=== PATIENT | male | born 1940 | race Caucasian/White ===

== ENCOUNTER 2021-01-08 04:58 | Day surgery (SDC) | payer OTHER, BC ==
[2021-01-06 14:47] VITALS: BMI 29.1
[2021-01-08 09:21] VITALS: TEMP 97.5
[2021-01-08 10:30] VITALS: BP 113/66; PULSE 77
== END 2021-01-08 10:25 | disposition home or self-care (01) ==
LOC: JASU-ENDO 04:58
PROVIDERS: ATTEND Internal Medicine Gastroenterology
PROC: 0DJD8ZZ Inspection of Lower Intestinal Tract, Via Natural or Artificial Opening Endoscopic (ICD-10-PCS; principal; 2021-01-08 08:56)
DX: Z12.11 Encounter for screening for malignant neoplasm of colon (principal); K57.30 Diverticulosis of large intestine without perforation or abscess without bleeding; K64.8 Other hemorrhoids; Z86.010 Personal history of colon polyps

== ENCOUNTER 2022-05-14 09:37 | Inpatient (IN) | payer OTHER, BC ==
[2022-05-14] MEDS ORDERED: ACETAMINOPHEN 650 MG SUPP.RECT ONE (09:44)
[2022-05-14] MEDS ORDERED: SODIUM CHLORIDE 1,000 ML IV STA (09:47)
[2022-05-14 10:25] VITALS: BMI 26.2
[2022-05-14 10:46] LABS: EPI CELLS 4 /uL (0-25.1); HYALINE CASTS 0 /uL (0-3.1); PH,URINE 7.5 (5.0-8.0); URINE APPEARANCE CLEAR; URINE BACTERIA 6 /uL (0-1359); URINE BILIRUBIN NEGATIVE (NEGATIVE); URINE COLOR YELLOW; URINE GLUCOSE (UA) NEGATIVE (NEGATIVE); URINE KETONE NEGATIVE (NEGATIVE); URINE LEUK ESTERASE NEGATIVE (NEGATIVE); URINE NITRITE NEGATIVE (NEGATIVE); URINE PROTEIN NEGATIVE (NEGATIVE); URINE RBC 62 /uL (0-23.9); URINE UROBILINOGEN 0.2 mg/dL (0.2-1.0); URINE WBC 2 /uL (0-25.8)
[2022-05-14 10:47] LABS: BASO % 0.4 % (0-2.0); EOS % 0.6 % (0-4.5); HEMATOCRIT 47.1 % (35.4-49); HEMOGLOBIN 15.7 GM/dL (11.7-16.9); LYMPH % 15.4 % (8-40); MCH 30.9 pg (25.7-33.7); MCHC 33.3 g/dl (32.0-35.9); MEAN CELL VOLUME 92.7 fl (80-96); MEAN PLT VOLUME 9.2 fl (7.5-11.1); MONO % 15.3 % (3.8-10.2); NEUT % 68.3 % (42.8-82.8); PLATELET COUNT 166 10^3/uL (134-434); RBC 5.08 M/mm3 (4.00-5.60); RDW 13.8 % (11.9-15.9)
[2022-05-14] MEDS ORDERED: LACTATED RINGERS SOLUTION 1000 ML INFUS.BAG IV ONE ×2 (10:47→12:56)
[2022-05-14 10:51] LABS: INR 1.18 (0.83-1.09); PROTHROMBIN TIME (PATIENT) 13.6 SEC (9.7-13.0)
[2022-05-14 10:54] LABS: ACTIVATED PTT 30.5 SECONDS (25.2-36.5)
[2022-05-14 10:58] LABS: CHLORIDE 103 mmol/L (98-107); SODIUM 133 mmol/L (136-145)
[2022-05-14 11:00] LABS: CALCIUM 8.9 mg/dL (8.5-10.1)
[2022-05-14 11:01] LABS: ALBUMIN 3.9 g/dl (3.4-5.0); BLOOD UREA NITROGEN 19.8 mg/dL (7-18); CO2 23 mmol/L (21-32); GLUCOSE,RANDOM 121 mg/dL (74-106); MAGNESIUM 2.4 mg/dL (1.8-2.4)
[2022-05-14 11:05] LABS: BILIRUBIN,TOTAL 0.6 mg/dL (0.2-1); TOT PROT 8.2 g/dl (6.4-8.2)
[2022-05-14 11:07] LABS: ALK PHOS 86 U/L (45-117)
[2022-05-14 11:40] LABS: LACTIC ACID 2.3 mmol/L (0.4-2.0)
[2022-05-14 11:57] LABS: ANION GAP 8 MMOL/L (8-16); SGOT/AST 89 U/L (15-37); SGPT/ALT 35 U/L (13-61)
[2022-05-14] MEDS ORDERED: DEXTROSE 5%-LACTATED RINGERS 1,000 ML IV SCH (13:30)
[2022-05-14] MEDS ORDERED: ASPIRIN 325 MG TABLET PO ONE (13:32)
[2022-05-14] MEDS ORDERED: ASPIRIN 300 MG SUPP.RECT PR ONE (13:44)
[2022-05-14] MEDS ORDERED: REMDESIVIR 200 MG in SODIUM CHLORIDE 250 ML IVPB ONE (14:12)
[2022-05-14] MEDS ORDERED: ASPIRIN 300 MG SUPP.RECT RC ONE (14:13)
[2022-05-14] MEDS ORDERED: ONDANSETRON 4 MG/2 ML VIAL IVPUSH ONE (14:16)
[2022-05-14] MEDS ORDERED: ONDANSETRON 4 MG/2 ML VIAL ONE (14:38)
[2022-05-14] MEDS ORDERED: VANCOMYCIN 1 GM/200 ML PREMIX BAG (RESTRICTED TO ID ONLY) IVPB ONE (20:54)
[2022-05-14] MEDS: TIMOLOL 0.5% OPHTHALMIC SOL 5 ML BOTTLE OU SCH (21:58)
[2022-05-14] MEDS: DEXTROSE 5%-LACTATED RINGERS 1,000 ML IV SCH (21:58)
[2022-05-14] MEDS: HEPARIN NA (PORCINE) 5,000 UNITS/ML 1ML VIAL SQ SCH (21:58)
[2022-05-14] MEDS: prednisoLONE ACETATE 1% OPHTH SUSP 5 ML BOTTLE OU SCH (21:58)
[2022-05-15] MEDS ORDERED: ACETAMINOPHEN 1000 MG/100 ML BAG IVPB PRN (02:09)
[2022-05-15 08:26] LABS: HEMATOCRIT 39.1 % (35.4-49); HEMOGLOBIN 13.1 GM/dL (11.7-16.9); MCH 31.2 pg (25.7-33.7); MCHC 33.6 g/dl (32.0-35.9); MEAN CELL VOLUME 92.9 fl (80-96); PLATELET COUNT 128 10^3/uL (134-434); RBC 4.21 M/mm3 (4.00-5.60); RDW 13.7 % (11.9-15.9); WHITE BLOOD COUNT 7.2 K/mm3 (4.0-10.0)
[2022-05-15 08:44] LABS: CALCIUM 8.4 mg/dL (8.5-10.1)
[2022-05-15 08:47] LABS: CREATININE 0.8 mg/dL (0.55-1.3)
[2022-05-15 08:49] LABS: BILIRUBIN,TOTAL 0.4 mg/dL (0.2-1)
[2022-05-15 08:50] LABS: TOT PROT 5.8 g/dl (6.4-8.2)
[2022-05-15] MEDS: HEPARIN NA (PORCINE) 5,000 UNITS/ML 1ML VIAL SQ SCH ×2 (09:49→21:30)
[2022-05-15] MEDS: TIMOLOL 0.5% OPHTHALMIC SOL 5 ML BOTTLE OU SCH ×2 (09:49→21:30)
[2022-05-15] MEDS: ASPIRIN COATED 81 MG TABLET.EC PO SCH (09:49)
[2022-05-15] MEDS: prednisoLONE ACETATE 1% OPHTH SUSP 5 ML BOTTLE OU SCH (09:49)
[2022-05-15 10:52] LABS: ANISOCYTOSIS 0; HELMET CELLS 0; HOWELL-JOLLY BODIES 0; MACROCYTOSIS 0; OVALOCYTE 0; ROULEAU 0; SICKELED CELLS 0; TARGET CELLS 0; TEAR DROP CELLS 0; TOXIC GRANULATION 0
[2022-05-15] MEDS: DEXAMETHASONE 4 MG TABLET (FP) PO SCH (13:26)
[2022-05-15] MEDS: REMDESIVIR 100 MG in SODIUM CHLORIDE 250 ML IVPB SCH (13:34)
[2022-05-15] MEDS: DEXTROSE 5%-LACTATED RINGERS 1,000 ML IV SCH (21:30)
[2022-05-16] MEDS ORDERED: chlorproMAZINE HCL 25 MG TABLET PO PRN (09:06)
[2022-05-16] MEDS ORDERED: ONDANSETRON 4 MG/2 ML VIAL IVPUSH ONE (09:18)
[2022-05-16 09:58] LABS: BASO % 0.1 % (0-2.0); HEMATOCRIT 41.8 % (35.4-49); HEMOGLOBIN 13.8 GM/dL (11.7-16.9); LYMPH % 11.2 % (8-40); MCH 30.5 pg (25.7-33.7); MCHC 33.1 g/dl (32.0-35.9); MEAN CELL VOLUME 92.1 fl (80-96); MEAN PLT VOLUME 9.1 fl (7.5-11.1); NEUT % 78.7 % (42.8-82.8); PLATELET COUNT 152 10^3/uL (134-434); RBC 4.54 M/mm3 (4.00-5.60); RDW 13.7 % (11.9-15.9); WHITE BLOOD COUNT 12.7 K/mm3 (4.0-10.0)
[2022-05-16] MEDS: ASPIRIN COATED 81 MG TABLET.EC PO SCH (10:03)
[2022-05-16] MEDS: HEPARIN NA (PORCINE) 5,000 UNITS/ML 1ML VIAL SQ SCH ×2 (10:03→21:40)
[2022-05-16] MEDS: DEXAMETHASONE 4 MG TABLET (FP) PO SCH (10:03)
[2022-05-16] MEDS: TIMOLOL 0.5% OPHTHALMIC SOL 5 ML BOTTLE OU SCH ×2 (10:13→21:40)
[2022-05-16] MEDS: prednisoLONE ACETATE 1% OPHTH SUSP 5 ML BOTTLE OU SCH (10:13)
[2022-05-16] MEDS: REMDESIVIR 100 MG in SODIUM CHLORIDE 250 ML IVPB SCH (13:06)
[2022-05-16] MEDS: chlorproMAZINE HCL 25 MG TABLET PO PRN (15:35)
[2022-05-16] MEDS: DEXTROSE 5%-LACTATED RINGERS 1,000 ML IV SCH (23:10)
[2022-05-17] MEDS: chlorproMAZINE HCL 25 MG TABLET PO PRN ×3 (02:38→23:23)
[2022-05-17] MEDS: DEXAMETHASONE 4 MG TABLET (FP) PO SCH (09:03)
[2022-05-17] MEDS: ASPIRIN COATED 81 MG TABLET.EC PO SCH (09:03)
[2022-05-17] MEDS: HEPARIN NA (PORCINE) 5,000 UNITS/ML 1ML VIAL SQ SCH ×2 (09:03→22:39)
[2022-05-17] MEDS: TIMOLOL 0.5% OPHTHALMIC SOL 5 ML BOTTLE OU SCH ×2 (09:04→22:39)
[2022-05-17] MEDS: prednisoLONE ACETATE 1% OPHTH SUSP 5 ML BOTTLE OU SCH (09:04)
[2022-05-17 09:09] LABS: BASO % 0.1 % (0-2.0); HEMATOCRIT 35.4 % (35.4-49); HEMOGLOBIN 11.8 GM/dL (11.7-16.9); LYMPH % 10.4 % (8-40); MCH 30.7 pg (25.7-33.7); MCHC 33.2 g/dl (32.0-35.9); MEAN CELL VOLUME 92.3 fl (80-96); MEAN PLT VOLUME 9.5 fl (7.5-11.1); MONO % 6.1 % (3.8-10.2); NEUT % 83.4 % (42.8-82.8); PLATELET COUNT 136 10^3/uL (134-434); RBC 3.84 M/mm3 (4.00-5.60); RDW 13.8 % (11.9-15.9); WHITE BLOOD COUNT 11.9 K/mm3 (4.0-10.0)
[2022-05-17 09:21] LABS: CHLORIDE 108 mmol/L (98-107); SODIUM 143 mmol/L (136-145)
[2022-05-17 09:33] LABS: ANION GAP 12 MMOL/L (8-16); BLOOD UREA NITROGEN 19.9 mg/dL (7-18); CO2 23 mmol/L (21-32)
[2022-05-17 09:41] LABS: CREATININE 0.8 mg/dL (0.55-1.3)
[2022-05-17 09:43] LABS: GLUCOSE,RANDOM 452 mg/dL (74-106)
[2022-05-17] MEDS: REMDESIVIR 100 MG in SODIUM CHLORIDE 250 ML IVPB SCH (14:25)
[2022-05-17] MEDS: DEXTROSE 5%-LACTATED RINGERS 1,000 ML IV SCH (22:38)
[2022-05-18] MEDS ORDERED: MELATONIN 5 MG TABLETS PO ONE (00:56)
[2022-05-18] MEDS: FAMOTIDINE 20 MG TABLET PO SCH ×2 (01:06→10:13)
[2022-05-18 07:33] LABS: BASO % 0.1 % (0-2.0); HEMATOCRIT 38.8 % (35.4-49); HEMOGLOBIN 12.9 GM/dL (11.7-16.9); MCH 30.6 pg (25.7-33.7); MCHC 33.3 g/dl (32.0-35.9); MEAN CELL VOLUME 91.7 fl (80-96); MEAN PLT VOLUME 8.8 fl (7.5-11.1); MONO % 8.4 % (3.8-10.2); NEUT % 81.5 % (42.8-82.8); PLATELET COUNT 146 10^3/uL (134-434); RBC 4.23 M/mm3 (4.00-5.60); RDW 13.6 % (11.9-15.9); WHITE BLOOD COUNT 11.8 K/mm3 (4.0-10.0)
[2022-05-18 07:53] LABS: CALCIUM 8.3 mg/dL (8.5-10.1)
[2022-05-18 07:54] LABS: BLOOD UREA NITROGEN 20.7 mg/dL (7-18)
[2022-05-18 07:57] LABS: CREATININE 0.8 mg/dL (0.55-1.3)
[2022-05-18 09:39] VITALS: RESP 20
[2022-05-18] MEDS ORDERED: FLUTICASONE PROP 0.05% 16 GM NASAL SPRAY NS SCH (10:00)
[2022-05-18] MEDS: ASPIRIN COATED 81 MG TABLET.EC PO SCH (10:13)
[2022-05-18] MEDS: HEPARIN NA (PORCINE) 5,000 UNITS/ML 1ML VIAL SQ SCH (10:13)
[2022-05-18] MEDS: TIMOLOL 0.5% OPHTHALMIC SOL 5 ML BOTTLE OU SCH (10:14)
[2022-05-18] MEDS: prednisoLONE ACETATE 1% OPHTH SUSP 5 ML BOTTLE OU SCH (10:14)
[2022-05-18] MEDS: chlorproMAZINE HCL 25 MG TABLET PO PRN (10:14)
[2022-05-18] MEDS: DEXAMETHASONE 4 MG TABLET (FP) PO SCH (10:15)
[2022-05-18] MEDS: REMDESIVIR 100 MG in SODIUM CHLORIDE 250 ML IVPB SCH (13:09)
[2022-05-18 14:43] VITALS: BP 120/74; PULSE 82; TEMP 98.3
== END 2022-05-18 17:58 | disposition home or self-care (01) | DRG 177 ==
LOC: JER 09:37 → JERBED 12:56 → J4S 20:02
PROVIDERS: ADMIT Internal Medicine; ATTEND Internal Medicine
PROC: XW033E5 Introduction of Remdesivir Anti-infective into Peripheral Vein, Percutaneous Approach, New Technology Group 5 (ICD-10-PCS; principal; 2022-05-14)
DX: U07.1 COVID-19 (principal); G93.41 Metabolic encephalopathy; I24.8 Other forms of acute ischemic heart disease; I10 Essential (primary) hypertension; E78.5 Hyperlipidemia, unspecified; I48.91 Unspecified atrial fibrillation; R06.6 Hiccough; K21.9 Gastro-esophageal reflux disease without esophagitis; K57.90 Diverticulosis of intestine, part unspecified, without perforation or abscess without bleeding; R00.0 Tachycardia, unspecified; R50.9 Fever, unspecified; E86.0 Dehydration; H40.9 Unspecified glaucoma; I25.119 Atherosclerotic heart disease of native coronary artery with unspecified angina pectoris; R73.9 Hyperglycemia, unspecified; R11.2 Nausea with vomiting, unspecified; Z95.5 Presence of coronary angioplasty implant and graft; Z88.0 Allergy status to penicillin
CPT/HCPCS: 0241U-QW; 36415; 70450-TC; 71045-TC-FY; 80048; 80053; 81003; 82272; 82550; 82553; 82962; 83605; 83735; 84132; 84439; 84443; 84484; 85025; 85610; 85730; 86140; 86850; 86900; 86901; 87040; 87086; 93005; 93010; 94761; 97116-GP; 97161-GP; 99285-25; C9399; J1644